=== PATIENT | male | born 1950 | race Caucasian/White ===

== ENCOUNTER 2016-11-13 00:28 | Inpatient (IN) | payer MEDICAID, MEDICARE ==
[~2016-11-13] VITALS: Ht 175.3 cm; Wt 81.9 kg
[2016-11-13] VITALS (9 sets, daily range): BP systolic 96–113; BP diastolic 58–71
[~2016-11-13 00:28] MED LIST: ACET325T14 PO; ALBU8.5H3 INH; ASPI-650 PO; DIABETIC MED; DIGO250T PO; DILT120C9 PO; DILT30TA33 PO; DOXY100T PO; DOXY50SY PO; FAMO20TA7 PO; FLUT1BLS INH; FOLI-17 PO; HYDR-3138 PO; IPRA3AMP NPPB; LIDO700A5 TD; LISI-167 PO; MAGN400T26 PO; METF500T4 PO; METH4TAB2 PO; METO50TA82 PO; MULT-484 PO; NICO1PAT4 TD; NICO1PAT5 TD; OXYC5TAB3 PO; PANT40TA3 PO; PRED10TA14 PO; RIVA20TA PO; SIMV20TA PO; THIA100T6 PO; [UNRECOGNIZED DRUG - CODE]
[2016-11-13] MEDS ORDERED: DILTIAZEM 5 MG/ML, 5ML IVPush STA (00:52)
[2016-11-13] MEDS ORDERED: DILTIAZEM 125 MG in DEXTROSE 5% 100 ML IV SCH (00:52)
[2016-11-13] MEDS ORDERED: SODIUM CHLORIDE FLUSH 10ML SYR IVF ONE (01:00)
[2016-11-13] MEDS ORDERED: ASPIRIN 81 MG TABLET CHEW PO ONE (01:00)
[2016-11-13] MEDS ORDERED: DILTIAZEM 5 MG/ML, 5ML ONE (01:00)
[2016-11-13] MEDS ORDERED: ASPIRIN 81 MG TABLET CHEW ONE (01:00)
[2016-11-13 01:59] LABS: BLOOD UREA NITROGEN 7 mg/dL (7-18)
[2016-11-13] MEDS ORDERED: ENOXAPARIN 80 MG/0.8 ML SQ ONE (02:00)
[2016-11-13] MEDS ORDERED: ENOXAPARIN 80 MG/0.8 ML ONE (02:04)
[2016-11-13 02:06] LABS: ASPARTATE AMINO TRANSFERASE 51 U/L (15-37)
[2016-11-13 02:13] LABS: IS PT STATUS REG ER OR PRE ER? YES
[2016-11-13] MEDS ORDERED: ALBUTEROL SULFATE 2.5 MG/3 ML HHN PRN (02:30)
[2016-11-13] MEDS: ENOXAPARIN 40 MG/0.4 ML SQ SCH ×2 (02:30→20:54)
[2016-11-13] MEDS ORDERED: DOCUSATE 100 MG CAPSULE PO PRN (02:30)
[2016-11-13] MEDS ORDERED: BISACODYL 10 MG SUPP PR PRN (02:30)
[2016-11-13] MEDS ORDERED: TRAZODONE 50MG TABLET PO PRN (02:30)
[2016-11-13] MEDS ORDERED: ALBUTEROL/IPRATROPIUM 2.5MG/0.5MG, 3 ML NPPB PRN ×2 (02:30→15:30)
[2016-11-13] MEDS: NICOTINE 14MG/24 HR PATCH.TD24 TD SCH ×2 (02:30→10:05)
[2016-11-13] MEDS ORDERED: POLYETHYLENE GLYCOL 17 GM PACKET PO PRN (02:30)
[2016-11-13] MEDS ORDERED: LABETALOL 5MG/ML, 20ML IV PRN (02:30)
[2016-11-13] MEDS ORDERED: NITROGLYCERIN 0.4 MG BOTTLE (25 TABS) SL PRN (04:00)
[2016-11-13] MEDS: ACETAMINOPHEN 325 MG TABLET PO PRN (04:13)
[2016-11-13] MEDS: METOPROLOL TARTRATE 50 MG TABLET PO SCH ×2 (06:31→18:19)
[2016-11-13 08:10] LABS: IS PT STATUS REG ER OR PRE ER? YES
[2016-11-13] MEDS: LISINOPRIL 10 MG TABLET PO SCH (09:58)
[2016-11-13] MEDS: NITROGLYCERIN 0.4 MG/SPRAY SL PRN ×2 (10:04→20:52)
[2016-11-13] MEDS ORDERED: DILTIAZEM 125 MG in SODIUM CHLORIDE 0.9% 100 ML IV SCH (10:30)
[2016-11-13 10:45] LABS: DAU SCREEN DISCLAIMER
[2016-11-13] MEDS: FLUTICASONE/VILANTEROL 200-25MCG/INH INH SCH (11:34)
[2016-11-13 14:52] LABS: IS PT STATUS REG ER OR PRE ER? NO
[2016-11-13] MEDS ORDERED: ONDANSETRON 2MG/ML, 2ML ONE (20:47)
[2016-11-13] MEDS ORDERED: ATORVASTATIN 20 MG TABLET PO SCH (21:00)
[2016-11-13] MEDS ORDERED: ONDANSETRON 2MG/ML, 2ML IVPush PRN (21:00)
[2016-11-14 01:30] VITALS: BP 98/64
[2016-11-14] MEDS: METOPROLOL TARTRATE 50 MG TABLET PO SCH (05:22)
[2016-11-14] MEDS ORDERED: ASPIRIN 325 MG TABLET PO SCH (06:00)
[2016-11-14] MEDS ORDERED: MAGNESIUM SULFATE PMX 2GM/50ML 50 ML IV ONE (07:00)
[2016-11-14 08:25] VITALS: BP 103/67
[2016-11-14] MEDS ORDERED: REGADENOSON 0.4 MG/5 ML SYRINGE ONE (08:37)
[2016-11-14 09:42] LABS: BLOOD UREA NITROGEN 12 mg/dL (7-18)
[2016-11-14] MEDS: LISINOPRIL 10 MG TABLET PO SCH (11:10)
[2016-11-14] MEDS: FLUTICASONE/VILANTEROL 200-25MCG/INH INH SCH (11:10)
[2016-11-14 11:12] VITALS: BP 114/74
[2016-11-14] MEDS: ACETAMINOPHEN 325 MG TABLET PO PRN (11:24)
[2016-11-14] MEDS ORDERED: DILTIAZEM 125 MG in SODIUM CHLORIDE 0.9% 100 ML IV SCH (11:31)
[2016-11-14 14:13] VITALS: BP 104/65
[2016-11-14] MEDS ORDERED: METO25TA35 PO (16:16)
[2016-11-14] MEDS ORDERED: METF500T PO (16:16)
[2016-11-14] MEDS ORDERED: ASPI325T4 PO (16:16)
[2016-11-14] MEDS ORDERED: ATOR20TA9 PO (16:16)
== END 2016-11-14 18:29 | disposition home or self-care (01) | DRG 308 ==
LOC: ED 01:06 → EDIP 02:01 → 5SO 03:01
PROVIDERS: ADMIT Internal Medicine; ATTEND Internal Medicine
DX: I48.0 Paroxysmal atrial fibrillation (principal); I50.33 Acute on chronic diastolic (congestive) heart failure; E87.1 Hypo-osmolality and hyponatremia; D68.59 Other primary thrombophilia; I48.92 Unspecified atrial flutter; F10.10 Alcohol abuse, uncomplicated; I25.119 Atherosclerotic heart disease of native coronary artery with unspecified angina pectoris; D75.89 Other specified diseases of blood and blood-forming organs; E11.65 Type 2 diabetes mellitus with hyperglycemia; J44.9 Chronic obstructive pulmonary disease, unspecified; E78.1 Pure hyperglyceridemia; E78.5 Hyperlipidemia, unspecified; E83.42 Hypomagnesemia; F17.210 Nicotine dependence, cigarettes, uncomplicated; G40.909 Epilepsy, unspecified, not intractable, without status epilepticus; I11.0 Hypertensive heart disease with heart failure; I25.2 Old myocardial infarction; Z91.19 Patient's noncompliance with other medical treatment and regimen; Z82.49 Family history of ischemic heart disease and other diseases of the circulatory system
CPT/HCPCS: 36415; 71010; 78452; 80048; 80053; 80061; 80307; 83036; 83735; 83880; 84443; 84484; 85025; 85610; 93005; 93017; 93306; 94640; 96372; 96374; 96375; J1650; J2405; J2785; J7620; A9502; C9898; J3475

== ENCOUNTER 2016-11-22 02:08 | Emergency (ER) | payer MEDICARE ==
[~2016-11-22] VITALS: Ht 182.9 cm; Wt 84.1 kg
[~2016-11-22 02:08] MED LIST changes: +ASPI325T4 PO; +ATOR20TA9 PO; +METF500T PO; +METO25TA35 PO
[2016-11-22] MEDS ORDERED: ONDANSETRON 2MG/ML, 2ML IVPush ONE (02:30)
[2016-11-22] MEDS ORDERED: KETOROLAC 30 MG/1 ML IVPush ONE (02:30)
[2016-11-22] MEDS ORDERED: MORPHINE SULFATE 4 MG/ML, 1ML IVPush PRN (02:30)
[2016-11-22] MEDS ORDERED: LIDOCAINE 1%, 10ML INFIL ONE (02:30)
[2016-11-22] MEDS ORDERED: SODIUM CHLORIDE 0.9% 1,000ML IVBOLUS ONE (02:30)
[2016-11-22] MEDS ORDERED: SODIUM CHLORIDE FLUSH 10ML SYR IVF ONE (02:30)
[2016-11-22] MEDS ORDERED: MORPHINE SULFATE 4 MG/ML, 1ML ONE (02:49)
[2016-11-22] MEDS ORDERED: LIDOCAINE 1%, 20ML ONE (02:49)
[2016-11-22] MEDS ORDERED: KETOROLAC 30 MG/1 ML ONE (02:49)
[2016-11-22] MEDS ORDERED: ONDANSETRON 2MG/ML, 2ML ONE (02:49)
[2016-11-22 03:08] LABS: BLOOD UREA NITROGEN 9 mg/dL (7-18)
[2016-11-22 04:08] LABS: GLUCOSE, CSF 143 mg/dL (40-80)
[2016-11-22 05:13] VITALS: BP 138/84
== END 2016-11-22 05:16 | disposition home or self-care (01) ==
LOC: ED 02:20
DX: E11.65 Type 2 diabetes mellitus with hyperglycemia (principal); G43.C0 Periodic headache syndromes in child or adult, not intractable; I11.0 Hypertensive heart disease with heart failure; I50.9 Heart failure, unspecified; E78.5 Hyperlipidemia, unspecified; J44.9 Chronic obstructive pulmonary disease, unspecified; I25.10 Atherosclerotic heart disease of native coronary artery without angina pectoris
CPT/HCPCS: 36415; 62270; 70450; 80048; 80307; 82040; 82945; 84157; 85025; 85610; 85730; 87070; 87205; 89051; 93005; 96361; 96374; 96375; 99285; J1885; J2405; J7030

== ENCOUNTER 2016-12-01 22:50 | Emergency (ER) | payer MEDICARE ==
[~2016-12-01] VITALS: Ht 167.6 cm; Wt 86.4 kg
[2016-12-02] MEDS ORDERED: MORPHINE SULFATE 4 MG/ML, 1ML ONE (00:03)
[2016-12-02] MEDS ORDERED: ONDANSETRON ODT 4 MG ONE (00:04)
[2016-12-02] MEDS ORDERED: ONDANSETRON 2MG/ML, 2ML ONE (00:05)
[2016-12-02] MEDS ORDERED: ONDANSETRON 2MG/ML, 2ML IVPush ONE ×2 (00:30)
[2016-12-02] MEDS ORDERED: KETOROLAC 30 MG/1 ML IVPush ONE (00:30)
[2016-12-02] MEDS ORDERED: SODIUM CHLORIDE FLUSH 10ML SYR IVF ONE (00:30)
[2016-12-02] MEDS ORDERED: SODIUM CHLORIDE 0.9% 1,000ML IVBOLUS ONE (00:30)
[2016-12-02] MEDS ORDERED: morphine SULFATE 10 MG/ML, 1ML IVPush ONE (00:30)
[2016-12-02] MEDS ORDERED: METOPROLOL 1 MG/ML, 5ML ONE ×3 (00:50→03:19)
[2016-12-02] MEDS ORDERED: METOPROLOL 1 MG/ML, 5ML IVPush ONE ×2 (01:00→03:30)
[2016-12-02 01:03] LABS: ASPARTATE AMINO TRANSFERASE 48 U/L (15-37); BLOOD UREA NITROGEN 12 mg/dL (7-18)
[2016-12-02 01:10] LABS: IS PT STATUS REG ER OR PRE ER? YES
[2016-12-02] MEDS: METOPROLOL 1 MG/ML, 5ML IVPush PRN ×2 (01:56→03:22)
[2016-12-02] MEDS ORDERED: OMNIPAQUE 350 MG/ML, 100ML BOTTLE ONE (01:56)
[2016-12-02] MEDS ORDERED: METOPROLOL TARTRATE 50 MG TABLET ONE (03:19)
[2016-12-02] MEDS ORDERED: METOPROLOL TARTRATE 25 MG TABLET PO SCH (03:30)
[2016-12-02] MEDS ORDERED: METOPROLOL TARTRATE 25 MG TABLET PO ONE (03:30)
[2016-12-02 04:58] VITALS: BP 122/70
== END 2016-12-02 05:02 | disposition home or self-care (01) ==
LOC: ED 12-02 01:37
DX: I48.2 Chronic atrial fibrillation (principal); Z72.89 Other problems related to lifestyle; I10 Essential (primary) hypertension; I25.2 Old myocardial infarction; J44.9 Chronic obstructive pulmonary disease, unspecified; E78.5 Hyperlipidemia, unspecified; I25.10 Atherosclerotic heart disease of native coronary artery without angina pectoris
CPT/HCPCS: 36415; 74177; 80053; 81003; 83690; 84484; 85025; 93005; 96374; 96375; 96376; 99285; J2270; J2405; J7030; Q9967

== ENCOUNTER 2017-06-24 01:05 | Inpatient (IN) | payer MEDICARE, MEDICAID ==
[~2017-06-24] VITALS: Ht 172.7 cm; Wt 83.3 kg
[~2017-06-24 01:05] MED LIST changes: -ALBU8.5H3 INH; +ALBU8.5H8 INH; +ASPI325T17 PO; -ASPI325T4 PO; -HYDR-3138 PO; +HYDR-3237 PO; +NICO-486 TD; +NICO-487 TD; -NICO1PAT4 TD; -NICO1PAT5 TD
[2017-06-24] MEDS ORDERED: MORPHINE SULFATE 4 MG/ML, 1ML IVPush PRN (02:00)
[2017-06-24] MEDS ORDERED: SODIUM CHLORIDE 0.9% 1,000ML IVBOLUS ONE (02:00)
[2017-06-24] MEDS ORDERED: DILTIAZEM 5 MG/ML, 5ML IV ONE (02:00)
[2017-06-24] MEDS ORDERED: ONDANSETRON 2MG/ML, 2ML IVPush ONE (02:00)
[2017-06-24 02:08] LABS: ASPARTATE AMINO TRANSFERASE 31 U/L (15-37); BLOOD UREA NITROGEN 11 mg/dL (7-18)
[2017-06-24] MEDS ORDERED: morphine SULFATE 10 MG/ML, 1ML ONE (02:15)
[2017-06-24] MEDS ORDERED: ONDANSETRON 2MG/ML, 2ML ONE (02:15)
[2017-06-24] MEDS ORDERED: DILTIAZEM 5 MG/ML, 5ML ONE ×2 (02:17→05:01)
[2017-06-24 02:40] LABS: HEMATOCRIT 48.8 % (39.2-51.8); HEMOGLOBIN 16.9 g/dL (13.7-18.0); WHITE BLOOD COUNT 8.6 x10^3/uL (3.4-10)
[2017-06-24] MEDS ORDERED: OMNIPAQUE 350 MG/ML, 100ML BOTTLE ONE (02:47)
[2017-06-24 03:29] LABS: IS PT STATUS REG ER OR PRE ER? YES
[2017-06-24] MEDS ORDERED: LORazepam 2 MG/ML, 1ML IVPush ONE (04:30)
[2017-06-24] MEDS ORDERED: FAMOTIDINE 20 MG/2 ML IVPush ONE (04:30)
[2017-06-24] MEDS ORDERED: LORazepam 2 MG/ML, 1ML ONE (04:30)
[2017-06-24] MEDS ORDERED: METRONIDAZOLE PMX 500MG/100ML 100 ML IV ONE (05:00)
[2017-06-24] MEDS ORDERED: ONDANSETRON 2MG/ML, 2ML IVPush PRN (05:00)
[2017-06-24] MEDS ORDERED: CIPROFLOXACIN/PMX 400MG/200ML 200 ML IV ONE (05:00)
[2017-06-24] MEDS ORDERED: DILTIAZEM 5 MG/ML, 5ML IVPush PRN (05:00)
[2017-06-24] MEDS ORDERED: morphine SULFATE 10 MG/ML, 1ML IVPush PRN (05:00)
[2017-06-24] MEDS ORDERED: ALBUTEROL HFA 90 MCG/SPRAY INH PRN (05:00)
[2017-06-24] MEDS ORDERED: LORazepam 2 MG/ML, 1ML IV PRN ×5 (05:00)
[2017-06-24] MEDS ORDERED: PROMETHAZINE 25 MG/ML, 1ML IM PRN (05:00)
[2017-06-24 05:50] VITALS: BP 112/75
[2017-06-24] MEDS: SODIUM CHLORIDE 0.9% 1,000 ML IV SCH (06:28)
[2017-06-24] MEDS: ENOXAPARIN 40 MG/0.4 ML SQ SCH (06:28)
[2017-06-24] MEDS: POTASSIUM CHLORIDE 20 MEQ, MAGNESIUM SULFATE 2 GM, THIAMINE 100 MG, MVI ADULT 10 ML, FO... IV SCH ×2 (06:40→15:15)
[2017-06-24 07:24] VITALS: BP 118/75
[2017-06-24 09:30] LABS: IS PT STATUS REG ER OR PRE ER? NO
[2017-06-24] MEDS: INSULIN ASPART 100 UNITS/ML, PEN SQ-INSULIN SCH ×4 (09:42→20:20)
[2017-06-24] MEDS: ACETAMINOPHEN 325 MG TABLET PO PRN ×2 (11:52→20:19)
[2017-06-24 14:12] VITALS: BP 116/67
[2017-06-24] MEDS ORDERED: MAALOX/HYOSCYAMINE/LIDOCAINE 45 ML BTL PO ONE (14:30)
[2017-06-24 15:08] LABS: IS PT STATUS REG ER OR PRE ER? NO
[2017-06-24] MEDS: PANTOPROZOLE 40MG TABLET PO SCH (15:27)
[2017-06-24] MEDS: METOPROLOL TARTRATE 25 MG TABLET PO SCH (18:14)
[2017-06-24] MEDS: metFORMIN 850 MG TABLET PO SCH (18:14)
[2017-06-24 18:53] VITALS: BP 106/63
[2017-06-24] MEDS: INSULIN DETEMIR 100 UNITS/ML, PEN SQ-INSULIN SCH (20:20)
[2017-06-25 01:19] VITALS: BP 98/57
[2017-06-25] MEDS: PANTOPROZOLE 40MG TABLET PO SCH ×2 (01:27→16:22)
[2017-06-25] MEDS: SODIUM CHLORIDE 0.9% 1,000 ML IV SCH (01:28)
[2017-06-25 05:36] LABS: HEMATOCRIT 46.6 % (39.2-51.8); HEMOGLOBIN 15.9 g/dL (13.7-18.0)
[2017-06-25 05:52] LABS: ASPARTATE AMINO TRANSFERASE 34 U/L (15-37); BLOOD UREA NITROGEN 10 mg/dL (7-18)
[2017-06-25] MEDS: POTASSIUM CHLORIDE 20 MEQ, MAGNESIUM SULFATE 2 GM, THIAMINE 100 MG, MVI ADULT 10 ML, FO... IV SCH ×2 (06:25→11:03)
[2017-06-25] MEDS: METOPROLOL TARTRATE 25 MG TABLET PO SCH ×2 (06:26→16:55)
[2017-06-25] MEDS: ENOXAPARIN 40 MG/0.4 ML SQ SCH (06:26)
[2017-06-25] MEDS: INSULIN ASPART 100 UNITS/ML, PEN SQ-INSULIN SCH ×4 (07:00→22:27)
[2017-06-25 07:18] VITALS: BP 121/81
[2017-06-25] MEDS: metFORMIN 850 MG TABLET PO SCH (10:29)
[2017-06-25] MEDS: INSULIN DETEMIR 100 UNITS/ML, PEN SQ-INSULIN SCH ×2 (10:32→22:27)
[2017-06-25 14:05] VITALS: BP 125/69
[2017-06-25] MEDS: metFORMIN 500 MG TABLET PO SCH (16:54)
[2017-06-25 19:30] VITALS: BP 109/62
[2017-06-25] MEDS: ALBUTEROL/IPRATROPIUM 2.5MG/0.5MG, 3 ML NPPB PRN (21:50)
[2017-06-26 00:34] VITALS: BP 110/71
[2017-06-26] MEDS: PANTOPROZOLE 40MG TABLET PO SCH (05:11)
[2017-06-26] MEDS: ENOXAPARIN 40 MG/0.4 ML SQ SCH (05:11)
[2017-06-26] MEDS: METOPROLOL TARTRATE 25 MG TABLET PO SCH (05:11)
[2017-06-26] MEDS ORDERED: ASPIRIN 325 MG TABLET PO SCH (06:00)
[2017-06-26] MEDS ORDERED: MAGNESIUM SULFATE PMX 4GM/100M 100 ML IV ONE (07:00)
[2017-06-26 07:19] VITALS: BP 116/82
[2017-06-26] MEDS: metFORMIN 500 MG TABLET PO SCH (08:21)
[2017-06-26] MEDS: INSULIN DETEMIR 100 UNITS/ML, PEN SQ-INSULIN SCH (08:22)
[2017-06-26] MEDS: INSULIN ASPART 100 UNITS/ML, PEN SQ-INSULIN SCH ×2 (08:23→12:24)
[2017-06-26] MEDS ORDERED: FOLIC ACID 1 MG TABLET PO SCH (09:00)
[2017-06-26] MEDS ORDERED: THIAMINE 100MG TABLET PO SCH (09:00)
[2017-06-26] MEDS: ALBUTEROL/IPRATROPIUM 2.5MG/0.5MG, 3 ML NPPB PRN (09:50)
[2017-06-26] MEDS ORDERED: GLIP5TAB10 PO (14:10)
[2017-06-26] MEDS ORDERED: ASPI325T17 PO (14:10)
[2017-06-26] MEDS ORDERED: METF500T PO (14:10)
[2017-06-26] MEDS ORDERED: PANT40TA5 PO (14:10)
[2017-06-26] MEDS ORDERED: IPRA3AMP NPPB (14:10)
[2017-06-26] MEDS ORDERED: METO25TA35 PO (14:10)
== END 2017-06-26 15:39 | disposition home or self-care (01) | DRG 896 ==
LOC: ED 03:09 → EDIP 04:32 → 5SO 05:48 → 4EST 06-26 13:37
PROVIDERS: ADMIT Hospitalist; ATTEND Hospitalist
DX: F10.239 Alcohol dependence with withdrawal, unspecified (principal); K85.90 Acute pancreatitis without necrosis or infection, unspecified; D68.69 Other thrombophilia; I48.2 Chronic atrial fibrillation; E11.65 Type 2 diabetes mellitus with hyperglycemia; I11.0 Hypertensive heart disease with heart failure; I50.32 Chronic diastolic (congestive) heart failure; E87.1 Hypo-osmolality and hyponatremia; G40.909 Epilepsy, unspecified, not intractable, without status epilepticus; K29.20 Alcoholic gastritis without bleeding; F17.210 Nicotine dependence, cigarettes, uncomplicated; I25.10 Atherosclerotic heart disease of native coronary artery without angina pectoris; J44.9 Chronic obstructive pulmonary disease, unspecified; K76.0 Fatty (change of) liver, not elsewhere classified; K80.20 Calculus of gallbladder without cholecystitis without obstruction; Z91.14 Patient's other noncompliance with medication regimen; I25.2 Old myocardial infarction
CPT/HCPCS: 36415; 71010; 74177; 76700; 80053; 80061; 82962; 83036; 83690; 83735; 84100; 84484; 85025; 86677; 93005; 94640; 96361; 96374; 96375; 96376; J1650; J1815; J2405; J3411; J3475; J3480; J7042; J7620; Q9967; J2060; J2270; J7030; S0028

== ENCOUNTER 2018-04-24 02:49 | Inpatient (IN) | payer MEDICAID, MEDICARE ==
[2018-04-22] MEDS: LORazepam 2 MG/ML, 1ML IV PRN (01:24)
[~2018-04-24] VITALS: Ht 172.7 cm; Wt 81.7 kg
[~2018-04-24 02:49] MED LIST changes: +GLIP5TAB10 PO; -IPRA3AMP NPPB; +IPRA3AMP30 NPPB; +METF500T17 PO; -METF500T4 PO; +PANT40TA5 PO; -THIA100T6 PO; +THIA100T67 PO
[2018-04-24] MEDS ORDERED: DILTIAZEM 5 MG/ML, 5ML IV ONE (03:00)
[2018-04-24] MEDS ORDERED: SODIUM CHLORIDE 0.9% 1,000ML IVBOLUS ONE (03:00)
[2018-04-24] MEDS ORDERED: DILTIAZEM 5 MG/ML, 5ML ONE (03:09)
[2018-04-24] MEDS ORDERED: ATOR40TA78 PO (03:18)
[2018-04-24 03:21] LABS: BASOPHILS # (AUTO) 0.03 x10^3/uL (0-0.1); BASOPHILS % (AUTO) 0 % (0-1); EOSINOPHILS # (AUTO) 0.15 x10^3/uL (0-0.4); EOSINOPHILS % (AUTO) 1 % (1-7); LYMPHOCYTES % (AUTO) 12 % (22-44); MD NO; MEAN CORPUSCULAR HEMOGLOBIN 35.2 pg (27.5-34.5); MEAN CORPUSCULAR HGB CONC 34.3 g/dL (33.2-36.2); MEAN CORPUSCULAR VOLUME 102.8 fL (81-97); MEAN PLATELET VOLUME 8.5 fL (7.4-10.4); MONOCYTES # (AUTO) 0.61 x10^3/uL (0.2-0.8); MONOCYTES % (AUTO) 5 % (2-9); NEUTROPHILS # (AUTO) 9.07 x10^3/uL (1.8-6.8); NEUTROPHILS % (AUTO) 81 % (42-75); PLATELET COUNT 107 x10^3/uL (130-400); RED BLOOD COUNT 5.31 x10^6/uL (4.38-5.82); RED CELL DISTRIBUTION WIDTH 14.6 % (9.4-14.8)
[2018-04-24 03:28] LABS: ALANINE AMINOTRANSFERASE 31 U/L (12-78); ALBUMIN 4.5 g/dL (3.4-5.0); ANION GAP 13 mmol/L (5-15); CALCIUM 10.2 mg/dL (8.5-10.1); CHLORIDE 101 mmol/L (98-107); CREATININE 1.27 mg/dL (0.7-1.3)
[2018-04-24 03:33] LABS: ALKALINE PHOSPHATASE 136 U/L (45-117); BILIRUBIN,TOTAL 2.2 mg/dL (0.2-1.0); TOTAL PROTEIN 8.5 g/dL (6.4-8.2)
[2018-04-24 03:35] LABS: TROPONIN I 0.144 ng/mL (0.000-0.045)
[2018-04-24] MEDS ORDERED: SODIUM CHLORIDE 0.9% 1,000 ML IV ONE (03:57)
[2018-04-24] MEDS ORDERED: LORazepam 2 MG/ML, 1ML ONE (03:57)
[2018-04-24] MEDS ORDERED: ONDANSETRON 2MG/ML, 2ML IVPush PRN ×2 (04:00→04:30)
[2018-04-24] MEDS ORDERED: LORazepam 2 MG/ML, 1ML IVPush ONE (04:00)
[2018-04-24] MEDS ORDERED: SODIUM CHLORIDE 0.9% 1,000 ML IV SCH (04:15)
[2018-04-24] MEDS ORDERED: DILTIAZEM 125 MG in SODIUM CHLORIDE 0.9% 100 ML IV PRN (04:30)
[2018-04-24] MEDS ORDERED: LORazepam 0.5MG TABLET PO PRN (04:30)
[2018-04-24] MEDS ORDERED: ALBUTEROL/IPRATROPIUM 2.5MG/0.5MG, 3 ML NPPB PRN ×2 (04:30→05:00)
[2018-04-24] MEDS ORDERED: POLYETHYLENE GLYCOL 17 GM PACKET PO PRN (04:30)
[2018-04-24] MEDS ORDERED: LORazepam 1MG TABLET PO PRN ×4 (04:30)
[2018-04-24] MEDS ORDERED: MAGNESIUM SULFATE PMX 2GM/50ML 50 ML IV ONE ×2 (04:30→10:00)
[2018-04-24] MEDS ORDERED: GABAPENTIN 300 MG CAPSULE PO PRN (04:30)
[2018-04-24] MEDS ORDERED: ONDANSETRON ODT 4 MG PO PRN (04:30)
[2018-04-24] MEDS ORDERED: BISACODYL 10 MG SUPP PR PRN (04:30)
[2018-04-24] MEDS ORDERED: LORazepam 2 MG/ML, 1ML IV PRN ×2 (04:30)
[2018-04-24] MEDS ORDERED: HEPARIN 5,000 UNITS/ML, 1ML SQ SCH (04:30)
[2018-04-24] MEDS ORDERED: PROMETHAZINE 25 MG/ML, 1ML IM PRN (04:30)
[2018-04-24] MEDS ORDERED: hydrALAzine 20 MG/ML, 1ML IVPush PRN (04:30)
[2018-04-24] MEDS ORDERED: LABETALOL 5MG/ML, 20ML IVPush PRN (04:30)
[2018-04-24] MEDS ORDERED: TEMPLATE NON-FORMULARY MED. (Albuterol Sulfate (Proair Hfa) 0 PUFFS) INH PRN (04:30)
[2018-04-24] MEDS ORDERED: DOCUSATE 100 MG CAPSULE PO PRN (04:30)
[2018-04-24 05:04] LABS: FREE T4 (FREE THYROXINE) 1.04 ng/dL (0.76-1.46)
[2018-04-24 05:40] VITALS: BP 130/92
[2018-04-24] MEDS: ASPIRIN 325 MG TABLET EC PO SCH (06:10)
[2018-04-24] MEDS: METOPROLOL TARTRATE 25 MG TABLET PO SCH ×2 (06:11→18:00)
[2018-04-24] MEDS ORDERED: DILTIAZEM 5 MG/ML, 5ML IVPush ONE (06:30)
[2018-04-24 07:25] LABS: TROPONIN I 0.141 ng/mL (0.000-0.045)
[2018-04-24] MEDS: metFORMIN 500 MG TABLET PO SCH ×2 (08:00→17:00)
[2018-04-24 08:26] VITALS: BP 126/79
[2018-04-24] MEDS ORDERED: LORazepam 2 MG/ML, 1ML IVPush PRN (08:30)
[2018-04-24] MEDS: ERGOCALCIFEROL 50,000 UNIT CAPSULE PO SCH (08:30)
[2018-04-24] MEDS: DILTIAZEM 125 MG in SODIUM CHLORIDE 0.9% 100 ML IV PRN ×2 (08:53→20:53)
[2018-04-24] MEDS: PANTOPROZOLE 40MG TABLET PO SCH (08:55)
[2018-04-24] MEDS: THIAMINE 100MG TABLET PO SCH (08:55)
[2018-04-24] MEDS: MULTIVITAMIN 1 TABLET PO SCH (08:55)
[2018-04-24] MEDS: FOLIC ACID 1 MG TABLET PO SCH (08:55)
[2018-04-24 10:15] VITALS: BP 135/71
[2018-04-24] MEDS: LORazepam 2 MG/ML, 1ML IV PRN ×7 (10:17→23:20)
[2018-04-24 12:43] LABS: TROPONIN I 0.143 ng/mL (0.000-0.045)
[2018-04-24 12:49] VITALS: BP 136/80
[2018-04-24 13:52] LABS: MICROSCOPIC INDICATED
[2018-04-24 14:04] LABS: AMPHETAMINE SCREEN, URINE Negative (Negative); BARBITURATE SCREEN, URINE Negative (Negative); BENZODIAZEPINE SCREEN, URINE Negative (Negative); CANNABINOID SCREEN, URINE Negative (Negative); COCAINE SCREEN, URINE Negative (Negative); METHADONE SCREEN, URINE Negative (Negative); OPIATE SCREEN, URINE Negative (Negative)
[2018-04-24 14:20] VITALS: BP 133/76
[2018-04-24 14:24] LABS: CULTURE INDICATED? NO
[2018-04-24 20:00] VITALS: BP 134/80
[2018-04-24] MEDS: ATORVASTATIN 40 MG TABLET PO SCH (21:00)
[2018-04-25] MEDS ORDERED: POTASSIUM CHLORIDE 20 MEQ, MAGNESIUM SULFATE 1 GM, THIAMINE 200 MG, FOLIC ACID 1 MG, MV... IV SCH
[2018-04-25] MEDS: LORazepam 2 MG/ML, 1ML IV PRN ×6 (01:00→16:37)
[2018-04-25 01:11] VITALS: BP 126/69
[2018-04-25 05:38] LABS: MEAN CORPUSCULAR HEMOGLOBIN 35.6 pg (27.5-34.5); MEAN CORPUSCULAR HGB CONC 34.5 g/dL (33.2-36.2); MEAN CORPUSCULAR VOLUME 103.3 fL (81-97); RED BLOOD COUNT 4.31 x10^6/uL (4.38-5.82); RED CELL DISTRIBUTION WIDTH 14.7 % (9.4-14.8)
[2018-04-25 05:40] LABS: INTERNATIONAL NORMALIZED RATIO 1.08 (0.93-1.1); PROTHROMBIN TIME 11.1 Seconds (9.6-11.5)
[2018-04-25 05:46] LABS: ALANINE AMINOTRANSFERASE 28 U/L (12-78); ALBUMIN 3.3 g/dL (3.4-5.0); ANION GAP 11 mmol/L (5-15); CALCIUM 8.2 mg/dL (8.5-10.1); CHLORIDE 107 mmol/L (98-107); CREATININE 0.74 mg/dL (0.7-1.3)
[2018-04-25 05:50] LABS: ALKALINE PHOSPHATASE 98 U/L (45-117); BILIRUBIN,TOTAL 1.6 mg/dL (0.2-1.0); CHOL/HDL RATIO 2.9; CHOLESTEROL, TOTAL 147 mg/dL (140-239); HDL CHOL % 35 % (26-37); HDL CHOLESTEROL (DIRECT) 51 mg/dL (40-60); LDL CHOLESTEROL,CALCULATED 66 mg/dL (54-169); LDL/HDL RATIO 1.3 (0.5-3.0); TOTAL PROTEIN 6.5 g/dL (6.4-8.2); TRIGLYCERIDES 148 mg/dL (50-200); VLDL CHOLESTEROL 30 mg/dL (0-25)
[2018-04-25 05:58] LABS: BASOPHILS # (AUTO) 0.03 x10^3/uL (0-0.1); BASOPHILS % (AUTO) 0 % (0-1); EOSINOPHILS # (AUTO) 0.05 x10^3/uL (0-0.4); EOSINOPHILS % (AUTO) 1 % (1-7); LYMPHOCYTES # (AUTO) 1.35 x10^3/uL (1-3.4); LYMPHOCYTES % (AUTO) 14 % (22-44); MD SCAN; MEAN PLATELET VOLUME 8.8 fL (7.4-10.4); MONOCYTES # (AUTO) 0.83 x10^3/uL (0.2-0.8); MONOCYTES % (AUTO) 8 % (2-9); NEUTROPHILS # (AUTO) 7.68 x10^3/uL (1.8-6.8); NEUTROPHILS % (AUTO) 77 % (42-75); PLATELET COUNT 91 x10^3/uL (130-400)
[2018-04-25] MEDS: METOPROLOL TARTRATE 25 MG TABLET PO SCH ×2 (06:00→08:33)
[2018-04-25] MEDS: ASPIRIN 325 MG TABLET EC PO SCH (06:00)
[2018-04-25 06:26] LABS: HEMOGLOBIN A1C 5.6 % (4.2-6.3)
[2018-04-25 06:51] VITALS: BP 127/73
[2018-04-25] MEDS: metFORMIN 500 MG TABLET PO SCH (08:00)
[2018-04-25] MEDS: DILTIAZEM 125 MG in SODIUM CHLORIDE 0.9% 100 ML IV PRN ×2 (08:20→21:07)
[2018-04-25] MEDS: FOLIC ACID 1 MG TABLET PO SCH (08:31)
[2018-04-25] MEDS: MULTIVITAMIN 1 TABLET PO SCH (08:32)
[2018-04-25] MEDS: PANTOPROZOLE 40MG TABLET PO SCH (08:32)
[2018-04-25] MEDS: THIAMINE 100MG TABLET PO SCH (08:32)
[2018-04-25 13:59] VITALS: BP 150/73
[2018-04-25] MEDS: PIPERACILLIN/TAZO/PMX 3.375GM 50 ML IV SCH ×2 (16:37→21:07)
[2018-04-25] MEDS ORDERED: DEXMEDETOMIDINE 200 MCG in SODIUM CHLORIDE 0.9% 48 ML IV PRN (17:30)
[2018-04-25] MEDS ORDERED: PHENOBARBITAL SODIUM 680 MG in SODIUM CHLORIDE 0.9% 50 ML IVPB ONE (17:30)
[2018-04-25] MEDS ORDERED: PHARMACY INSTRUCTION MC PRN ×4 (17:30)
[2018-04-25] MEDS ORDERED: PHENOBARBITAL SODIUM 680 MG in SODIUM CHLORIDE 0.9% 50 ML IV ONE (18:00)
[2018-04-25] MEDS ORDERED: PHENOBARBITAL SODIUM IV ONE (21:00)
[2018-04-25] MEDS ORDERED: SODIUM CHLORIDE 0.9% IV ONE (21:00)
[2018-04-25] MEDS: ATORVASTATIN 40 MG TABLET PO SCH (21:09)
[2018-04-26] MEDS ORDERED: POTASSIUM CHLORIDE 20 MEQ, THIAMINE 200 MG, FOLIC ACID 1 MG, MVI ADULT 10 ML in SODIUM ... IV SCH
[2018-04-26] MEDS ORDERED: POTASSIUM CHLORIDE 20 MEQ, MAGNESIUM SULFATE 1 GM, THIAMINE 200 MG, FOLIC ACID 1 MG, MV... IV SCH
[2018-04-26] MEDS: POTASSIUM CHLORIDE 20 MEQ, THIAMINE 200 MG, FOLIC ACID 1 MG, MVI ADULT 10 ML in SODIUM ... IV SCH (02:27)
[2018-04-26] MEDS: PIPERACILLIN/TAZO/PMX 3.375GM 50 ML IV SCH ×3 (03:43→14:01)
[2018-04-26 04:00] VITALS: BP 120/71
[2018-04-26 05:03] LABS: CHLORIDE 106 mmol/L (98-107)
[2018-04-26 05:07] LABS: ALANINE AMINOTRANSFERASE 29 U/L (12-78); ALBUMIN 3.6 g/dL (3.4-5.0); ALKALINE PHOSPHATASE 102 U/L (45-117); ANION GAP 13 mmol/L (5-15); BILIRUBIN,TOTAL 2.4 mg/dL (0.2-1.0); CALCIUM 8.7 mg/dL (8.5-10.1); TOTAL PROTEIN 7.2 g/dL (6.4-8.2)
[2018-04-26] MEDS: ASPIRIN 325 MG TABLET EC PO SCH (06:27)
[2018-04-26] MEDS: METOPROLOL TARTRATE 25 MG TABLET PO SCH (06:27)
[2018-04-26] MEDS: PHENOBARBITAL SODIUM 65 MG/ML, 1ML IM SCH ×2 (06:30→17:36)
[2018-04-26] MEDS ORDERED: THIAMINE 100MG TABLET PO SCH (09:00)
[2018-04-26] MEDS: DILTIAZEM 125 MG in SODIUM CHLORIDE 0.9% 100 ML IV PRN ×2 (09:25→23:33)
[2018-04-26] MEDS ORDERED: MVI ADULT 10 ML, THIAMINE 200 MG, FOLIC ACID 1 MG in SODIUM CHLORIDE 0.45% 1,000 ML IV SCH (12:00)
[2018-04-26] MEDS: INSULIN LISPRO 100 UNITS/ML, PEN SQ-INSULIN SCH ×3 (12:00→21:47)
[2018-04-26] MEDS ORDERED: MAGNESIUM SULFATE PMX 4GM/100M 100 ML IV ONE (12:00)
[2018-04-26] MEDS: D5%-0.45% NACL 1,000 ML IV SCH ×2 (17:35→18:59)
[2018-04-26] MEDS: ATORVASTATIN 40 MG TABLET PO SCH (21:26)
[2018-04-27] MEDS: PIPERACILLIN/TAZO/PMX 3.375GM 50 ML IV SCH ×2 (01:46→06:01)
[2018-04-27] MEDS: POTASSIUM CHLORIDE 20 MEQ, THIAMINE 200 MG, FOLIC ACID 1 MG, MVI ADULT 10 ML in SODIUM ... IV SCH ×2 (02:14→06:47)
[2018-04-27 04:00] VITALS: BP 117/70
[2018-04-27 04:37] LABS: BASOPHILS # (AUTO) 0.06 x10^3/uL (0-0.1); BASOPHILS % (AUTO) 1 % (0-1); EOSINOPHILS # (AUTO) 0.06 x10^3/uL (0-0.4); EOSINOPHILS % (AUTO) 1 % (1-7); LYMPHOCYTES # (AUTO) 1.06 x10^3/uL (1-3.4); LYMPHOCYTES % (AUTO) 11 % (22-44); MD NO; MEAN CORPUSCULAR HEMOGLOBIN 35.6 pg (27.5-34.5); MEAN CORPUSCULAR HGB CONC 34.2 g/dL (33.2-36.2); MEAN CORPUSCULAR VOLUME 104.1 fL (81-97); MEAN PLATELET VOLUME 8.7 fL (7.4-10.4); MONOCYTES # (AUTO) 1.31 x10^3/uL (0.2-0.8); MONOCYTES % (AUTO) 13 % (2-9); NEUTROPHILS # (AUTO) 7.54 x10^3/uL (1.8-6.8); NEUTROPHILS % (AUTO) 75 % (42-75); PLATELET COUNT 103 x10^3/uL (130-400); RED BLOOD COUNT 4.59 x10^6/uL (4.38-5.82); RED CELL DISTRIBUTION WIDTH 14.5 % (9.4-14.8)
[2018-04-27 04:43] LABS: ALBUMIN 3.3 g/dL (3.4-5.0); ANION GAP 11 mmol/L (5-15); CALCIUM 8.3 mg/dL (8.5-10.1); CHLORIDE 106 mmol/L (98-107)
[2018-04-27 04:46] LABS: ALANINE AMINOTRANSFERASE 25 U/L (12-78); ALKALINE PHOSPHATASE 91 U/L (45-117); BILIRUBIN,TOTAL 2.6 mg/dL (0.2-1.0); CREATININE 0.72 mg/dL (0.7-1.3); TOTAL PROTEIN 7.4 g/dL (6.4-8.2)
[2018-04-27] MEDS: PHENOBARBITAL SODIUM 65 MG/ML, 1ML IM SCH ×2 (05:55→17:00)
[2018-04-27] MEDS: ASPIRIN 81 MG TABLET CHEW PO SCH (06:02)
[2018-04-27] MEDS: INSULIN LISPRO 100 UNITS/ML, PEN SQ-INSULIN SCH ×4 (06:49→20:40)
[2018-04-27] MEDS: MAGNESIUM SULFATE 1 GM, MVI ADULT 10 ML, THIAMINE 200 MG, FOLIC ACID 1 MG in SODIUM CHL... IV SCH (09:02)
[2018-04-27] MEDS ORDERED: POTASSIUM CHLORIDE 40 MEQ in D5%-0.45% NACL 1,000 ML IV SCH ×2 (12:00→19:57)
[2018-04-27] MEDS: DILTIAZEM 125 MG in SODIUM CHLORIDE 0.9% 100 ML IV PRN (12:19)
[2018-04-27] MEDS ORDERED: HEPARIN wt. based STROKE protocol IV PRN (15:30)
[2018-04-27] MEDS ORDERED: DO NOT GIVE XX PRN (15:30)
[2018-04-27] MEDS: HEPARIN 25,000 UNITS/500ML PMX 500 ML IV PRN (16:53)
[2018-04-27] MEDS: ATORVASTATIN 40 MG TABLET PO SCH (20:40)
[2018-04-28] MEDS: DILTIAZEM 125 MG in SODIUM CHLORIDE 0.9% 100 ML IV PRN (00:21)
[2018-04-28 04:00] VITALS: BP 106/67
[2018-04-28] MEDS: PHENOBARBITAL 20 MG/5 ML ORAL SOL PO SCH ×2 (05:00→16:15)
[2018-04-28] MEDS: ASPIRIN 81 MG TABLET CHEW PO SCH (05:33)
[2018-04-28 06:10] LABS: BASOPHILS # (AUTO) 0.03 x10^3/uL (0-0.1); BASOPHILS % (AUTO) 0 % (0-1); EOSINOPHILS # (AUTO) 0.17 x10^3/uL (0-0.4); EOSINOPHILS % (AUTO) 2 % (1-7); LYMPHOCYTES # (AUTO) 1.61 x10^3/uL (1-3.4); LYMPHOCYTES % (AUTO) 21 % (22-44); MD NO; MEAN CORPUSCULAR HGB CONC 34.6 g/dL (33.2-36.2); MEAN PLATELET VOLUME 8.9 fL (7.4-10.4); MONOCYTES # (AUTO) 1.22 x10^3/uL (0.2-0.8); MONOCYTES % (AUTO) 16 % (2-9); NEUTROPHILS # (AUTO) 4.52 x10^3/uL (1.8-6.8); NEUTROPHILS % (AUTO) 60 % (42-75); PLATELET COUNT 117 x10^3/uL (130-400); RED CELL DISTRIBUTION WIDTH 14.6 % (9.4-14.8)
[2018-04-28 06:16] LABS: CHLORIDE 106 mmol/L (98-107)
[2018-04-28 06:25] LABS: ALANINE AMINOTRANSFERASE 26 U/L (12-78); ALBUMIN 2.8 g/dL (3.4-5.0); ALKALINE PHOSPHATASE 87 U/L (45-117); ANION GAP 9 mmol/L (5-15); BILIRUBIN,TOTAL 1.5 mg/dL (0.2-1.0); CALCIUM 8.4 mg/dL (8.5-10.1); CREATININE 0.65 mg/dL (0.7-1.3); TOTAL PROTEIN 6.7 g/dL (6.4-8.2)
[2018-04-28] MEDS: INSULIN LISPRO 100 UNITS/ML, PEN SQ-INSULIN SCH ×4 (07:00→21:00)
[2018-04-28] MEDS ORDERED: POTASSIUM CHLORIDE 20 MEQ TAB.ER.PRT PO ONE (08:00)
[2018-04-28] MEDS ORDERED: METOPROLOL 1 MG/ML, 5ML IVPush PRN (09:30)
[2018-04-28] MEDS: METOPROLOL TARTRATE 25 MG TABLET PO SCH ×2 (10:15→16:21)
[2018-04-28] MEDS: MAGNESIUM SULFATE 1 GM, MVI ADULT 10 ML, THIAMINE 200 MG, FOLIC ACID 1 MG in SODIUM CHL... IV SCH (10:33)
[2018-04-28] MEDS ORDERED: THIAMINE 200 MG in SODIUM CHLORIDE 0.9% 50 ML IV SCH (12:00)
[2018-04-28] MEDS: HEPARIN 25,000 UNITS/500ML PMX 500 ML IV PRN (15:36)
[2018-04-28 19:27] VITALS: BP 157/83
[2018-04-28] MEDS: ATORVASTATIN 40 MG TABLET PO SCH (20:38)
[2018-04-29 00:40] VITALS: BP 137/81
[2018-04-29] MEDS: METOPROLOL TARTRATE 25 MG TABLET PO SCH ×3 (01:14→17:08)
[2018-04-29] MEDS: PHENOBARBITAL 20 MG/5 ML ORAL SOL PO SCH (03:38)
[2018-04-29] MEDS: ASPIRIN 81 MG TABLET CHEW PO SCH (05:28)
[2018-04-29 05:30] VITALS: BP 125/70
[2018-04-29 07:44] VITALS: BP 124/80
[2018-04-29] MEDS: INSULIN LISPRO 100 UNITS/ML, PEN SQ-INSULIN SCH ×4 (07:49→20:46)
[2018-04-29] MEDS: MAGNESIUM SULFATE 1 GM, MVI ADULT 10 ML, THIAMINE 200 MG, FOLIC ACID 1 MG in SODIUM CHL... IV SCH (08:11)
[2018-04-29] MEDS: HEPARIN 25,000 UNITS/500ML PMX 500 ML IV PRN (08:19)
[2018-04-29 13:01] VITALS: BP 110/69
[2018-04-29] MEDS ORDERED: TAMSULOSIN 0.4 MG CAP.ER.24H PO ONE (13:30)
[2018-04-29] MEDS ORDERED: HEPARIN 25,000 UNITS/500ML PMX 500 ML IV PRN (13:30)
[2018-04-29] MEDS: RIVAROXABAN 20 MG TABLET PO SCH (17:10)
[2018-04-29 19:42] VITALS: BP 116/73
[2018-04-29] MEDS: ATORVASTATIN 40 MG TABLET PO SCH (20:47)
[2018-04-30 01:48] VITALS: BP 123/80
[2018-04-30] MEDS: METOPROLOL TARTRATE 25 MG TABLET PO SCH ×2 (01:49→07:55)
[2018-04-30 03:42] VITALS: BP 136/78
[2018-04-30] MEDS ORDERED: PHENOBARBITAL 20 MG/5 ML ORAL SOL PO SCH (05:00)
[2018-04-30] MEDS: ASPIRIN 81 MG TABLET CHEW PO SCH (06:22)
[2018-04-30 07:21] VITALS: BP 135/85
[2018-04-30] MEDS: INSULIN LISPRO 100 UNITS/ML, PEN SQ-INSULIN SCH ×4 (07:55→20:58)
[2018-04-30] MEDS: TAMSULOSIN 0.4 MG CAP.ER.24H PO SCH (07:55)
[2018-04-30] MEDS ORDERED: TAMSULOSIN 0.4 MG CAP.ER.24H PO SCH (09:00)
[2018-04-30 13:44] VITALS: BP 121/79
[2018-04-30] MEDS: RIVAROXABAN 20 MG TABLET PO SCH (16:29)
[2018-04-30 19:55] VITALS: BP 161/79
[2018-04-30] MEDS: METOPROLOL TARTRATE 50 MG TABLET PO SCH (20:57)
[2018-04-30] MEDS: ATORVASTATIN 40 MG TABLET PO SCH (20:57)
[2018-05-01 02:23] VITALS: BP 117/68
[2018-05-01] MEDS ORDERED: PHENOBARBITAL 20 MG/5 ML ORAL SOL PO SCH (05:00)
[2018-05-01] MEDS: ASPIRIN 81 MG TABLET CHEW PO SCH (05:23)
[2018-05-01 08:02] VITALS: BP 105/69
[2018-05-01] MEDS: TAMSULOSIN 0.4 MG CAP.ER.24H PO SCH (09:19)
[2018-05-01] MEDS: METOPROLOL TARTRATE 50 MG TABLET PO SCH ×2 (09:19→20:44)
[2018-05-01] MEDS: ERGOCALCIFEROL 50,000 UNIT CAPSULE PO SCH (09:19)
[2018-05-01] MEDS: INSULIN LISPRO 100 UNITS/ML, PEN SQ-INSULIN SCH ×4 (09:29→20:44)
[2018-05-01] MEDS ORDERED: METOPROLOL TARTRATE 25 MG TABLET PO ONE (10:30)
[2018-05-01 11:27] LABS: ALBUMIN 3.3 g/dL (3.4-5.0); ANION GAP 6 mmol/L (5-15); CALCIUM 8.8 mg/dL (8.5-10.1); CHLORIDE 105 mmol/L (98-107)
[2018-05-01 11:32] LABS: ALANINE AMINOTRANSFERASE 66 U/L (12-78); ALKALINE PHOSPHATASE 100 U/L (45-117); BILIRUBIN,TOTAL 0.7 mg/dL (0.2-1.0); CREATININE 0.83 mg/dL (0.7-1.3); TOTAL PROTEIN 7.1 g/dL (6.4-8.2)
[2018-05-01 13:03] VITALS: BP 102/68
[2018-05-01] MEDS ORDERED: DIGO125T PO (13:32)
[2018-05-01] MEDS ORDERED: TAMS-11 PO (13:32)
[2018-05-01] MEDS ORDERED: ERGO500017 PO (13:32)
[2018-05-01] MEDS ORDERED: METO50TA82 PO (13:32)
[2018-05-01] MEDS ORDERED: RIVA20TA PO (13:32)
[2018-05-01] MEDS ORDERED: ONDA4TAB13 PO (13:32)
[2018-05-01] MEDS ORDERED: DIGOXIN 0.25 MG/ML, 2ML IVPush ONE (14:00)
[2018-05-01] MEDS ORDERED: MAGNESIUM SULFATE 4 GM in SODIUM CHLORIDE 0.9% 100 ML IV ONE (14:00)
[2018-05-01] MEDS ORDERED: MAGNESIUM SULFATE PMX 4GM/100M 100 ML IVPB ONE (14:00)
[2018-05-01] MEDS: RIVAROXABAN 20 MG TABLET PO SCH (17:56)
[2018-05-01 19:14] VITALS: BP 139/70
[2018-05-01] MEDS: ATORVASTATIN 40 MG TABLET PO SCH (20:44)
[2018-05-02 04:09] VITALS: BP 131/67
[2018-05-02 05:08] LABS: ANION GAP 6 mmol/L (5-15); CALCIUM 8.6 mg/dL (8.5-10.1); CHLORIDE 105 mmol/L (98-107); CREATININE 0.79 mg/dL (0.7-1.3)
[2018-05-02 07:00] VITALS: BP 159/62
[2018-05-02] MEDS: INSULIN LISPRO 100 UNITS/ML, PEN SQ-INSULIN SCH ×4 (07:00→20:30)
[2018-05-02] MEDS: METOPROLOL TARTRATE 50 MG TABLET PO SCH (08:14)
[2018-05-02] MEDS: DIGOXIN 0.125 MG TABLET PO SCH (08:14)
[2018-05-02] MEDS: TAMSULOSIN 0.4 MG CAP.ER.24H PO SCH (08:14)
[2018-05-02] MEDS: ASPIRIN 81 MG TABLET CHEW PO SCH (08:14)
[2018-05-02] MEDS ORDERED: REGADENOSON 0.4 MG/5 ML SYRINGE ONE (08:16)
[2018-05-02] MEDS ORDERED: METOPROLOL TARTRATE 50 MG TABLET PO ONE (10:00)
[2018-05-02 10:29] VITALS: BP 111/63
[2018-05-02 13:25] VITALS: BP 106/56
[2018-05-02] MEDS: RIVAROXABAN 20 MG TABLET PO SCH (17:10)
[2018-05-02] MEDS: METOPROLOL TARTRATE 100 MG TABLET PO SCH (19:10)
[2018-05-02] MEDS: ATORVASTATIN 40 MG TABLET PO SCH (20:29)
[2018-05-03 04:25] VITALS: BP 118/79
[2018-05-03 06:19] VITALS: BP 137/77
[2018-05-03] MEDS: ASPIRIN 81 MG TABLET CHEW PO SCH (06:20)
[2018-05-03] MEDS: METOPROLOL TARTRATE 100 MG TABLET PO SCH (06:20)
[2018-05-03] MEDS: INSULIN LISPRO 100 UNITS/ML, PEN SQ-INSULIN SCH ×2 (07:00→11:00)
[2018-05-03 07:12] VITALS: BP 125/76
[2018-05-03] MEDS: DIGOXIN 0.125 MG TABLET PO SCH (07:57)
[2018-05-03] MEDS: TAMSULOSIN 0.4 MG CAP.ER.24H PO SCH (07:57)
[2018-05-03] MEDS ORDERED: FOLI-17 PO (08:25)
[2018-05-03] MEDS ORDERED: MAGN400T7 PO (08:25)
[2018-05-03] MEDS ORDERED: THIA100T10 PO (08:25)
[2018-05-03] MEDS ORDERED: METO-99 PO (09:19)
[2018-05-03] MEDS ORDERED: ASPI-515 PO (09:19)
== END 2018-05-03 11:59 | disposition home or self-care (01) | DRG 432 ==
LOC: ED 03:08 → EDIP 03:57 → 4WST 06:01 → 5SO 08:04 → CCU 04-25 17:38 → 5SO 04-28 15:30
PROVIDERS: ADMIT Internal Medicine; ATTEND Internal Medicine
DX: K70.10 Alcoholic hepatitis without ascites (principal); G93.41 Metabolic encephalopathy; F10.239 Alcohol dependence with withdrawal, unspecified; D68.69 Other thrombophilia; F10.231 Alcohol dependence with withdrawal delirium; I48.2 Chronic atrial fibrillation; F17.210 Nicotine dependence, cigarettes, uncomplicated; E83.42 Hypomagnesemia; E78.5 Hyperlipidemia, unspecified; I11.0 Hypertensive heart disease with heart failure; I50.9 Heart failure, unspecified; I25.2 Old myocardial infarction; I25.10 Atherosclerotic heart disease of native coronary artery without angina pectoris; J44.9 Chronic obstructive pulmonary disease, unspecified; D69.6 Thrombocytopenia, unspecified; E11.9 Type 2 diabetes mellitus without complications; E55.9 Vitamin D deficiency, unspecified; E83.52 Hypercalcemia; E86.0 Dehydration; G40.909 Epilepsy, unspecified, not intractable, without status epilepticus; I45.10 Unspecified right bundle-branch block; K80.20 Calculus of gallbladder without cholecystitis without obstruction; Y90.9 Presence of alcohol in blood, level not specified
CPT/HCPCS: 36415; 70450; 71045; 78452; 80048; 80053; 80061; 80162; 80307; 81001; 82140; 82306; 82607; 82962; 83036; 83735; 83970; 84100; 84439; 84443; 84484; 85025; 85520; 85610; 87040; 87081; 90656; 93005; 93017; 93308; 93321; 93325; 94640; 96361; 96374; G0378; J1644; J2543; J2560; J2785; J3411; J3475; J3480; J7620; A9502; C9898; J1160; J1815; J2060; J7030

== ENCOUNTER 2018-12-17 20:57 | Emergency (ER) | payer MEDICARE, MEDICAID ==
[~2018-12-17] VITALS: Ht 175.3 cm; Wt 75.7 kg
[~2018-12-17 20:57] MED LIST changes: +ACID1TAB7 PO; +ASPI-515 PO; +ATOR20TA37 PO; -ATOR20TA9 PO; +ATOR40TA78 PO; +CARV6.2512 PO; +DIGO125T PO; +DILT30TA27 PO; +ERGO500017 PO; +MAGN400T7 PO; +METO-99 PO; +ONDA4TAB13 PO; +TAMS-11 PO; +THIA100T10 PO
--- NOTE | 2018-12-17 22:53 | NUR ---
Pt called back for pit orders. Nilx1.
--- NOTE | 2018-12-17 23:00 | NUR ---
[id number]
--- NOTE | 2018-12-17 23:13 | NUR ---
Nilx3. Eloped at this time.
--- NOTE | 2018-12-17 23:19 | NUR ---
Pt in lobby and in pit at this time.
--- NOTE | 2018-12-17 23:59 | NUR ---
Pt amb w/ steady gait to room at this time.
[2018-12-18 00:07] LABS: BASOPHILS # (AUTO) 0.03 x10^3/uL (0-0.1); BASOPHILS % (AUTO) 1 % (0-1); EOSINOPHILS # (AUTO) 0.16 x10^3/uL (0-0.4); EOSINOPHILS % (AUTO) 3 % (1-7); LYMPHOCYTES # (AUTO) 1.91 x10^3/uL (1-3.4); LYMPHOCYTES % (AUTO) 34 % (22-44); MD NO; MEAN CORPUSCULAR HEMOGLOBIN 35.4 pg (27.5-34.5); MEAN CORPUSCULAR HGB CONC 33.2 g/dL (33.2-36.2); MEAN CORPUSCULAR VOLUME 106.6 fL (81-97); MEAN PLATELET VOLUME 8.1 fL (7.4-10.4); MONOCYTES # (AUTO) 0.36 x10^3/uL (0.2-0.8); MONOCYTES % (AUTO) 6 % (2-9); NEUTROPHILS # (AUTO) 3.23 x10^3/uL (1.8-6.8); NEUTROPHILS % (AUTO) 57 % (42-75); PLATELET COUNT 103 x10^3/uL (130-400); RED BLOOD COUNT 5.14 x10^6/uL (4.38-5.82); RED CELL DISTRIBUTION WIDTH 14.3 % (9.4-14.8)
[2018-12-18 00:10] LABS: ALANINE AMINOTRANSFERASE 37 U/L (12-78); ALBUMIN 4.1 g/dL (3.4-5.0); ANION GAP 13 mmol/L (5-15); CALCIUM 8.2 mg/dL (8.5-10.1); CHLORIDE 109 mmol/L (98-107)
[2018-12-18 00:14] LABS: ALKALINE PHOSPHATASE 129 U/L (45-117); TOTAL PROTEIN 7.7 g/dL (6.4-8.2)
[2018-12-18 00:17] LABS: TROPONIN I 0.192 ng/mL (0.000-0.045)
--- NOTE | 2018-12-18 00:36 | NUR ---
PT AND FAMILY IN ROOM WITH GLEN DAUGHERTY. PT ATTACHED TO INTERPRETER TRANSLATOR AND VSS. VSS AT THIS TIME. PT HAS CALL LIGHT WITHIN REACH.
[2018-12-18 01:44] LABS: TROPONIN I 0.185 ng/mL (0.000-0.045)
--- NOTE | 2018-12-18 02:53 | NUR ---
PT ASLEEP IN [facility] AT THIS TIME; [place]. PT VSS AND UPDATED IN EMR.
[2018-12-18 03:29] VITALS: BP 125/83
--- NOTE | 2018-12-18 04:04 | NUR ---
PT D/C WITH D/C SUMMARY. PT AMBULATORY WITH STEADY GAIT TO REGISTRATION DESK FOR D/C HOME. PT GIVEN TAXI VOUCHER AND TAXI CALLED FOR SAFE D/C OF PT HOME. PT DENIES ANY OTHER NEEDS PERTAINING TO THIS VISIT.
== END 2018-12-18 04:10 | disposition left against medical advice (07) ==
LOC: ED 23:59
DX: R07.89 Other chest pain (principal); S06.310A Contusion and laceration of right cerebrum without loss of consciousness, initial encounter; S06.320A Contusion and laceration of left cerebrum without loss of consciousness, initial encounter; F10.220 Alcohol dependence with intoxication, uncomplicated; E11.9 Type 2 diabetes mellitus without complications; I11.0 Hypertensive heart disease with heart failure; I50.9 Heart failure, unspecified; E78.5 Hyperlipidemia, unspecified; I48.91 Unspecified atrial fibrillation; I25.2 Old myocardial infarction; F17.200 Nicotine dependence, unspecified, uncomplicated; W01.0XXA Fall on same level from slipping, tripping and stumbling without subsequent striking against object, initial encounter; Y93.89 Activity, other specified; Y92.89 Other specified places as the place of occurrence of the external cause; Y99.8 Other external cause status
CPT/HCPCS: 36415; 70450; 71045; 72125; 80053; 84484; 85025; 93005; 99284

== ENCOUNTER 2019-02-11 22:00 | Emergency (ER) | payer MEDICARE, MEDICAID ==
--- NOTE | 2019-02-11 22:09 | NUR ---
EKG DONE ON ARRIVAL
[2019-02-11 22:36] LABS: ALBUMIN 3.8 g/dL (3.4-5.0); ANION GAP 11 mmol/L (5-15); CALCIUM 8.1 mg/dL (8.5-10.1); CHLORIDE 107 mmol/L (98-107); CREATININE 1.03 mg/dL (0.7-1.3)
[2019-02-11 22:58] LABS: MEAN CORPUSCULAR HEMOGLOBIN 35.2 pg (27.5-34.5); MEAN CORPUSCULAR HGB CONC 32.7 g/dL (33.2-36.2); MEAN CORPUSCULAR VOLUME 107.6 fL (81-97); MEAN PLATELET VOLUME 8.5 fL (7.4-10.4); PLATELET COUNT 85 x10^3/uL (130-400); RED BLOOD COUNT 5.06 x10^6/uL (4.38-5.82); RED CELL DISTRIBUTION WIDTH 15.9 % (9.4-14.8)
[2019-02-11 22:59] LABS: MD YES
--- NOTE | 2019-02-11 23:03 | NUR ---
PT SLEEPING ON STRETCHER, EASILY AROUSABLE. PT GIVEN WARM BLANKETS, CALL LIGHT WITHIN REACH. WILL CONTINUE TO MONITOR.
[2019-02-11 23:11] LABS: INTERNATIONAL NORMALIZED RATIO 1.08 (0.93-1.1); PROTHROMBIN TIME 11.3 Seconds (9.6-11.5)
[2019-02-11 23:13] LABS: BASOS% (MANUAL) 1 % (0-1); LYMPH#(MANUAL) 1.98 x10^3/uL (1-3.4); LYMPHS% (MANUAL) 20 % (22-44); MONOS#(MANUAL) 0.79 x10^3/uL (0.3-2.7); MONOS% (MANUAL) 8 % (2-9); SEG#(MANUAL) 7.03 x10^3/uL (1.8-6.8); SEGS% (MANUAL) 71 % (42-75)
[2019-02-11 23:15] LABS: <PLATELET ESTIMATE> DECREASED; <PLT MORPHOLOGY> NORMAL PLT MORPH; <RBC MORPHOLOGY> NORMAL; POLYCHROMASIA 1+
--- NOTE | 2019-02-12 01:40 | NUR ---
PT AMBULATED TO RESTROOM ON HIS OWN. PT PLACED BACK ON FULL MONITOR. CALL LIGHT WITHIN REACH. WILL CONTINUE TO MONITOR.
[2019-02-12 03:28] LABS: TROPONIN I 0.153 ng/mL (0.000-0.045)
[2019-02-12 04:22] VITALS: BP 115/75
--- NOTE | 2019-02-12 04:22 | NUR ---
Patient/Caregiver given discharge instructions and they have confirmed that they understand the instructions. Patient ambulatory with steady gait.
== END 2019-02-12 01:35 | disposition home or self-care (01) ==
LOC: ED 22:35
DX: R07.2 Precordial pain (principal); F10.20 Alcohol dependence, uncomplicated; I11.0 Hypertensive heart disease with heart failure; I50.9 Heart failure, unspecified; I25.2 Old myocardial infarction; E11.9 Type 2 diabetes mellitus without complications; J44.9 Chronic obstructive pulmonary disease, unspecified; E78.5 Hyperlipidemia, unspecified; I48.92 Unspecified atrial flutter; I25.10 Atherosclerotic heart disease of native coronary artery without angina pectoris; F17.200 Nicotine dependence, unspecified, uncomplicated; Y90.9 Presence of alcohol in blood, level not specified
CPT/HCPCS: 36415; 71045; 80048; 80307; 82040; 84484; 85025; 85610; 85730; 93005; 99284